=== PATIENT | female | born 1930 | race Caucasian/White ===

== ENCOUNTER 2018-04-25 00:31 | Observation (INO) ==
[2018-04-25] MEDS ORDERED: Aspirin 81 MG TAB.CHEW PO ONE (00:35)
[2018-04-25 01:38] LABS: Basophils % 0.3 %; Eosinophils # 0.1 K/mcL (0.0-0.6); Eosinophils % 1.3 %; Hematocrit 38.1 % (35.3-44.9); Hemoglobin 12.7 g/dL (11.5-15.4); Immature Granulocytes % 0.8 % (0-4); Lymphocytes # 1.5 K/mcL (0.6-4.6); Mean Corpuscular HGB Conc 33.3 g/dL (31.6-35.5); Mean Corpuscular Volume 89.9 fL (83.0-100.0); Mean Platelet Volume 10.4 fL (9.4-12.4); Monocytes # 0.7 K/mcL (0.0-1.3); Monocytes % 9.2 %; Neutrophils # 5.3 K/mcL (1.6-8.9); Platelet Count 255 K/mcL (140-400); Red Blood Count 4.24 M/mcL (3.82-4.97); Red Cell Distribution Width 12.3 % (11.5-14.5); Segmented Neutrophils % 69.4 %
--- NOTE | 2018-04-25 01:45 | Emergency Department Note ---
Disposition Clinical Impression: Chest pain Qualifiers: Chest pain type: unspecified Qualified Code(s): R07.9 - Chest pain, unspecified Disposition: Admitted As Inpatient Condition: Fair Referrals: Rm Sylvester Jr, MD [Primary Care Provider] - Forms: ED Satisfaction Letter Time of Disposition: 02:58 General Adult HPI - General Chief complaint: UC Shortness of Breath Stated complaint: Left Arm Pain Time Seen by Provider: 04/25/18 00:35 Source: EMS Mode of arrival: EMS Limitations: age Nursing Notes Reviewed: Yes Vital Signs Reviewed: Yes - History of Present Illness HPI Narrative: 88-year-old female history of hypertension presents with left-sided chest pressure shortness of breath pain radiating to her left arm. Patient does have a history of rheumatoid arthritis as well initially thought it was this FROM sleep made her more short of breath and she called EMS, they brought her in she is having 5 or 10 chest pain initially on arrival, and shortness of breath. Mostly pain in her left arm, the patient states that her arm is often recently injured, she is a recent history of DVTs or PEs. Pt Subjective Complaint: Left Arm pain SOB Onset (ago): hour(s) Pain Severity: mild Pain Scale: 0 Improves with: nothing Worsens with: nothing Associated symptoms: Reports: chest pain. Denies: confusion, cough, diaphoresis , headaches, loss of appetite, malaise Treatments Prior to Arrival: none - Related Data Home Medications Medication Instructions Recorded Confirmed Diltiazem 06/15/15 06/15/15 Metoprolol 06/15/15 06/15/15 Previous Rx's Medication Instructions Recorded methylPREDNISolone [Medrol] 4 mg PO TAPER #21 tablet 12/23/16 Allergies Allergy/AdvReac Type Severity Reaction Status Date / Time No Known Allergies Allergy Verified 06/15/15 16:27 All systems ED: reviewed and negative except as stated. Review of Systems: As Per HPI Constitutional: Denies: fever, chills Eyes: Denies: eye pain ENT ED: Denies: ear pain Cardiovascular: Reports: as per HPI, chest pain Respiratory: Reports: as per HPI, dyspnea. Denies: cough Gastrointestinal: Denies: abdominal pain Genitourinary: Denies: urgency, dysuria Musculoskeletal: Reports: as per HPI, arthralgia. Denies: back pain Integumentary: Denies: rash Past Medical History - Past Medical History Attestation: Yes The following information was validated with the patient. 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 ASSISTANT TEACHER history - Social History Smoking Status: Never smoker Smokeless Tobacco Status: No Alcohol use: Reports: none Drug use: Reports: none Physical Exam Constitutional: Elderly cachectic female appears mildly uncomfortable Eyes: PERRLA, sclera anicteric ENT & Mouth: MMM Neck: normal inspection, neck is supple Resp: CTA bilaterally, no resp distress CV: RRR, no m/g/r GI: normal inspection, soft, no guarding or rigidity Neuro: A&O3, CNII-XII grossly intact, MOORE MSK; pain with range of motion of the left arm at the elbow, Skin: on limited exam, skin intact with no rashes or lesions - General General appearance: alert Course Course Narrative: Patient's pain was resolved after aspirin administration, her EKG was within normal limits and her troponin was not elevated, but given her age and comorbidities with chest pain shortness of breath or heart score is a 4, will admit her for further workup and cardiac enzyme trending, the hospitalist's excepting [place] Vital Signs Temperature 97.8 F 04/25/18 01:31 Pulse Rate 70 04/25/18 01:31 Respiratory Rate 18 04/25/18 01:31 Blood Pressure 132/66 04/25/18 01:31 O2 Sat by Pulse Oximetry 98 04/25/18 01:31 Temperature 97.8 F 04/25/18 01:31 Pulse Rate 70 04/25/18 01:31 Respiratory Rate 18 04/25/18 01:31 Blood Pressure 132/66 04/25/18 01:31 O2 Sat by Pulse Oximetry 98 04/25/18 01:31 Oxygen Delivery Oxygen Delivery Room Air Medical Decision Making - Differential Diagnosis Chest pain, atypical, ACS, unstable angina, return arthritis, - Medical Records Medical records reviewed: Yes I reviewed the patient's medical records. - Lab Data Lab results reviewed: Yes I reviewed the patient's lab results. Result diagrams: 04/25/18 01:19 04/25/18 01:19 Lab Results 04/25/18 04/25/18 Range/Units 01:19 01:19 WBC 7.6 (4.3-11.1) K/mcL RBC 4.24 (3.82-4.97) M/mcL Hgb 12.7 (11.5-15.4) g/dL Hct 38.1 (35.3-44.9) % MCV 89.9 (83.0-100.0) fL MCH 30.0 (28.0-33.3) pg MCHC 33.3 (31.6-35.5) g/dL RDW 12.3 (11.5-14.5) % Plt Count 255 (140-400) K/mcL MPV 10.4 (9.4-12.4) fL Immature Gran % 0.8 (0-4) % Seg Neutrophils % 69.4 % Lymphocytes % 19.0 % Monocytes % 9.2 % Eosinophils % 1.3 % Basophils % 0.3 % Neutrophils # 5.3 (1.6-8.9) K/mcL Lymphocytes # 1.5 (0.6-4.6) K/mcL Monocytes # 0.7 (0.0-1.3) K/mcL Eosinophils # 0.1 (0.0-0.6) K/mcL Basophils # 0.0 (0.0-0.2) K/mcL Sodium 135 L (136-145) mEq/L Potassium 4.2 (3.5-5.1) mEq/L Chloride 101 (98-107) mEq/L Carbon Dioxide 22 L (23-29) mEq/L BUN 29 H (8-23) mg/dL Creatinine 0.92 (0.60-1.20) mg/dL Est GFR ( Amer) > 60 (> 60) Est GFR (Non-Af Amer) 58 L (> 60) BUN/Creatinine Ratio 32 H (6-26) Glucose 111 H (70-105) mg/dL Calculated Osmolality 287 (280-300) Calcium 9.7 (8.6-10.3) mg/dL Troponin I < 0.03 (< 0.04) ng/mL - Radiology Data Radiology results reviewed: Yes I reviewed the patient's radiology results. Chest X-Ray 04/25/18 00:35 IMPRESSION: No acute disease. D/ / Rahul Villalta MD / Rahul Villalta MD Interpreting Provider: Rahul Villalta MD - EKG Data EKG #1 EKG attestation: Yes I reviewed and interpreted this EKG. EKG shows normal: sinus rhythm Rate: normal Rhythm: NSR [place]/QRS: normal (84 bpm AR 111 QRS [address] segment elevations or depressions) Heart Score - Score History: Moderately Suspicious EKG: Normal Age: Greater than 65 Risk Factors: 1-2 risk factors Troponin: Less than normal limit HEART Score Total: 4
[2018-04-25 01:56] LABS: BUN/Creatinine Ratio 32 (6-26); Blood Urea Nitrogen 29 mg/dL (8-23); Calcium 9.7 mg/dL (8.6-10.3); Carbon Dioxide 22 mEq/L (23-29); Chloride 101 mEq/L (98-107); Glucose 111 mg/dL (70-105); Osmolality,Calculated 287 (280-300); Potassium 4.2 mEq/L (3.5-5.1); Sodium 135 mEq/L (136-145); eGFR For African Americans > 60 (> 60); eGFR For Non-African Americans 58 (> 60)
[2018-04-25 01:57] LABS: Troponin I < 0.03 ng/mL (< 0.04)
[2018-04-25] MEDS ORDERED: *HR* HYDROcodone/Acet 5/325 mg TABLET PO PRN (08:05)
[2018-04-25] MEDS ORDERED: Naloxone 0.4 MG/ML INJ IVP PRN (08:05)
[2018-04-25] MEDS ORDERED: Acetaminophen 325 MG TABLET PO PRN (08:05)
--- NOTE | 2018-04-25 08:13 | Internal Med History&Physical ---
Date of Encounter: 04/25/18 Time of Encounter: 07:57 Internal Medicine - H&P: HPI Chief complaint: "Left arm burning" Admitted From: Emergency Dept Plans for Post Hospital Care: Home History of present illness: Ms. Sofia is a 88 year old female who presented to ED this morning for left arm "burning." She states that she was sitting and watching TV when the pain started. Pain was located on ventral left lower arm, and later radiated up left arm to left shoulder. She denies any chest pain. She denies fever, chills , SOB, nausea, vomiting, abdominal pain, changes in bladder, or changes in bowels. She has a history of arthritis, for which she got steroid shots a few weeks ago. Only other relevant PMH is HTN, which has been well-controlled recently on diltiazem and metoprolol. In the ED, CXR showed no acute cardiopulmonary process. EKG was NSR with HR 84. Initial troponin was WNL. I was asked to admit patient for chest pain ruleout. Past Med Surg Social Fam HX - Past Medical History Attestation: Yes The following information was validated with the patient. Source: patient Medical history: arthritis, hypertension Psychiatric history: no psych history - Past Surgical History Surgical History: no surgical history - Social History Smoking Status: Never smoker Smokeless Tobacco Status: No Alcohol use: none Drug use: none - Additional Family History Additional family history: Family history of CAD, but cannot specify family members or age. Internal Medicine - H&P: Meds Diltiazem 06/15/15 [History] Metoprolol 06/15/15 [History] methylPREDNISolone [Medrol] 4 mg PO TAPER #21 tablet 12/23/16 [Rx] 3 Allergy/AdvReac Type Severity Reaction Status Date / Time No Known Allergies Allergy Verified 06/15/15 16:27 All Systems PM: A 10-system review of systems was performed and is negative for pertinent findings except as documented above in the HPI. - Constitutional Vitals: Temp Pulse Resp BP Pulse Ox 98.1 F 76 15 132/77 96 04/25/18 07:38 04/25/18 07:38 04/25/18 07:38 04/25/18 07:38 04/25/18 07:38 General appearance: Present: cooperative, A&O X 3, pleasant, no acute distress, answers questions appropriately - Head Head exam: Present: atraumatic, normal inspection, normocephalic - Eye Eye exam: Present: EOMI, PERRL. Absent: conjunctival injection, nystagmus, scleral icterus - ENT ENT exam: Present: mucous membranes moist, normal external ear exam, normal oropharynx - Neck Neck exam general surgery: Present: supple, trachea midline. Absent: lymphadenopathy, tenderness, thyromegaly - Respiratory Respiratory exam: Present: CTAB. Absent: accessory muscle use, rales, rhonchi, wheezes Additional comments: Normal WOB - Cardiovascular Cardiovascular exam: Present: RRR, +S1, +S2. Absent: diastolic murmur, gallop, rubs, systolic murmur Additional comments: No BLE edema - GI/Abdominal GI/Abdominal exam: Present: normal bowel sounds, soft. Absent: distended, hepatomegaly, mass, splenomegaly, tenderness - Extremities Exam Additional comments: No erythema, edema, or TTP of BUE and BLE. - Neurological Exam Neurological exam: Present: alert, CN II-XII intact, oriented X3, no focal deficits, strengths equal and symetr throughout. Absent: motor sensory deficit , facial droop, speech deficit - Psychiatric Psychiatric exam: Present: normal affect, normal mood. Absent: agitated, anxious, depressed - Skin Skin exam: Present: dry, intact, warm. Absent: cyanosis, rash Internal Med - H&P Results - Labs CBC & Chem 7: 04/25/18 01:19 18 01:19 - Assessment and plan (1) Chest pain Current Visit: Yes Status: Resolved Assessment and plan: No chest pain at this time. Admit for observation with telemetry for chest pain ruleout. Trend troponin x 3. Obtain ECHO. Management of HTN as per below. Very low suspicion for ACS. Tylenol and norco PRN pain. Supplemental O2 PRN. Aspirin given in ED. Qualifiers: Chest pain type: other chest pain Qualified Code(s): R07.89 - Other chest pain; R07.8 - Other chest pain (2) Left arm pain Current Visit: Yes Status: Acute Assessment and plan: Possibly related to arthritis. Pain control as per above. Rule out ACS as per above. (3) Hypertension Current Visit: Yes Status: Acute Assessment and plan: Normotensive at this time. Continue home medications after verification. Hydralazine IV PRN HTN. Qualifiers: Hypertension type: essential hypertension Qualified Code(s): I10 - Essential (primary) hypertension (4) Arthritis Current Visit: Yes Status: Acute Assessment and plan: Keep follow up as outpatient. Received steroid injections regularly. Pain control as per above. (5) DVT prophylaxis Current Visit: Yes Status: Acute Assessment and plan: Start lovenox 40 mg SQ QD and SCDs. - Time Spent With Patient Total time spent is greater than 50% in coordination of care (as documented) at patient's floor/unit and/or counseling patient: less than 15 minutes
[2018-04-25] MEDS: *HR* Enoxaparin 40 MG/0.4 ML SYRINGE SQ SCH (09:17)
[2018-04-25] MEDS ORDERED: Triamcinolone Acet 0.1% CRM 15 GM TUBE TP PRN (17:41)
[2018-04-25] MEDS: Spironolactone 25 MG TABLET PO SCH (18:30)
[2018-04-25] MEDS: Diltiazem CD (24hr) 180 MG CAPSULE PO SCH (18:30)
[2018-04-25] MEDS: Metoprolol XL (24 HR) Succ 50 MG TAB.ER.24H PO SCH (18:30)
[2018-04-26] MEDS: *HR* Enoxaparin 40 MG/0.4 ML SYRINGE SQ SCH (06:09)
[2018-04-26 06:25] LABS: Basophils % 0.4 %; Eosinophils # 0.1 K/mcL (0.0-0.6); Eosinophils % 0.7 %; Hematocrit 39.1 % (35.3-44.9); Hemoglobin 13.1 g/dL (11.5-15.4); Immature Granulocytes % 0.9 % (0-4); Lymphocytes % 13.7 %; Mean Corpuscular HGB Conc 33.5 g/dL (31.6-35.5); Mean Corpuscular Hemoglobin 30.4 pg (28.0-33.3); Mean Corpuscular Volume 90.7 fL (83.0-100.0); Mean Platelet Volume 10.8 fL (9.4-12.4); Monocytes # 0.9 K/mcL (0.0-1.3); Monocytes % 11.3 %; Neutrophils # 5.6 K/mcL (1.6-8.9); Platelet Count 254 K/mcL (140-400); Red Blood Count 4.31 M/mcL (3.82-4.97)
[2018-04-26 06:42] LABS: BUN/Creatinine Ratio 27 (6-26); Blood Urea Nitrogen 28 mg/dL (8-23); Calcium 9.5 mg/dL (8.6-10.3); Carbon Dioxide 20 mEq/L (23-29); Chloride 101 mEq/L (98-107); Chol/HDL Ratio 2.6 (0-4.9); Cholesterol 206 mg/dL (< 200); Glucose 115 mg/dL (70-105); HDL Cholesterol 79 mg/dL (40-59); LDL Cholesterol,Calculated 112 mg/dL (0-99); Osmolality,Calculated 286 (280-300); Potassium 4.1 mEq/L (3.5-5.1); Sodium 135 mEq/L (136-145); Triglycerides 76 mg/dL (< 150); eGFR For African Americans > 60 (> 60); eGFR For Non-African Americans 51 (> 60)
[2018-04-26] MEDS: Spironolactone 25 MG TABLET PO SCH ×2 (09:14→11:24)
[2018-04-26] MEDS: Metoprolol XL (24 HR) Succ 50 MG TAB.ER.24H PO SCH ×2 (09:14→11:24)
[2018-04-26] MEDS: Diltiazem CD (24hr) 180 MG CAPSULE PO SCH ×2 (09:14→11:24)
--- NOTE | 2018-04-26 09:22 | Internal Med Progress Note ---
Date of Encounter: 04/26/18 Time of Encounter: 09:20 - Assessment and plan (1) Acute delirium Current Visit: Yes Status: Acute Assessment and plan: Acute delirium beginning overnight No prior history of confusion or dementia Check for infective source, obtain UA to consider UTI Check a [id number] and TSH Seroquel 12.5 mg now then 25 mg by mouth at night Tried to avoid Haldol or Ativan as is may exacerbate confusion obtain MRI of head-patient also having truncal swaying when sitting up in bed unsupported. Rule out CVA/TIA (2) Chest pain Current Visit: Yes Status: Resolved Assessment and plan: Presented with left lower arm pain radiating up to the left shoulder Patient denies ever having any chest pain throughout the stay No prior cardiac history per medical record review She has been admitted for observation for chest pain ruleout Troponin found to be negative x3, no ECG changes concerning for ischemia per my review Given clinical findings she has a very low suspicion for ACS Continue Tylenol and [place] for pain Supplemental O2 when necessary TTE obtained- LVEF 60-65% Normal LV chamber size, wall thickness and function Normal LV diastolic dysfunction Normal RV structure and function Mild-moderate aortic regurgitation No evidence of pulmonary HTN Qualifiers: Chest pain type: other chest pain Qualified Code(s): R07.89 - Other chest pain; R07.8 - Other chest pain (3) Left arm pain Current Visit: Yes Status: Acute Assessment and plan: Possibly related to arthritis Pain control as per above (4) Hypertension Current Visit: Yes Status: Acute Assessment and plan: History of HTN BP remained stable Continue home anti-HTN medications Hydralazine IV PRN HTN. Qualifiers: Hypertension type: essential hypertension Qualified Code(s): I10 - Essential (primary) hypertension (5) Arthritis Current Visit: Yes Status: Acute Assessment and plan: History of bilateral shoulder arthritis Follows outpatient with bone and joint team Receives steroid injections regularly Into recurrent pain control regimen (6) DVT prophylaxis Current Visit: Yes Status: Acute Assessment and plan: Continue SQ Lovenox and SCDs, early ambulation as tolerated - Time Spent With Patient Total time spent is greater than 50% in coordination of care (as documented) at patient's floor/unit and/or counseling patient: Greater than 35 minutes - Subjective Interval history: Patient seen and examined at bedside today. Patient's son is at bedside with her. Patient seems very agitated this morning is refusing to answer questions or cooperate with examination. The patient's son is there and concern that this is a change in mental status. He reports that his mother is not normally this agitated. He does report however that the patient is alert to self and place and situation. That is also my assessment. - Constitutional Vitals: Temp Pulse Resp BP Pulse Ox 98.0 F 65 14 116/73 96 04/25/18 22:56 04/25/18 22:56 04/25/18 22:56 04/25/18 22:56 04/25/18 22:56 General appearance: Present: A&O X 3, no acute distress. Absent: cooperative, pleasant, answers questions appropriately Exam: Uncooperative, refusing to participate in examination - Head Head exam: Present: atraumatic, normocephalic - Eye Eye exam: Present: PERRL, conjuntiva pink, sclera anicteric Pupils: Present: PERRL - Neck Neck exam general surgery: Present: supple, trachea midline. Absent: lymphadenopathy - Respiratory Respiratory exam: Present: CTAB. Absent: accessory muscle use, rales, rhonchi, wheezes - Cardiovascular Cardiovascular exam: Present: RRR, +S1, +S2. Absent: diastolic murmur, gallop, rubs, systolic murmur - GI/Abdominal GI/Abdominal exam: Present: normal bowel sounds, soft, no peritoneal signs. Absent: distended, tenderness - Extremities Exam Extremities exam: Present: warm, radial pulses palpable and symmetrical. Absent : calf tenderness, cyanotic, pedal edema - Neurological Exam Neurological exam: Present: CN II-XII intact, oriented X3, no focal deficits. Absent: pronater drift, facial droop, speech deficit - Psychiatric Psychiatric exam: Present: agitated. Absent: normal affect, normal mood - Skin Skin exam: Present: dry, intact Internal Medicine: Result - Labs CBC & Chem 7: 04/26/18 05:21 04/26/18 05:21 Labs: Short CBC 04/26/18 Range/Units 05:21 WBC 7.6 (4.3-11.1) K/mcL Hgb 13.1 (11.5-15.4) g/dL Hct 39.1 (35.3-44.9) % Plt Count 254 (140-400) K/mcL Neutrophils # 5.6 (1.6-8.9) K/mcL BMP 04/26/18 05:21 Sodium 135 L Potassium 4.1 Chloride 101 Carbon Dioxide 20 L BUN 28 H Creatinine 1.02 Glucose 115 H Calcium 9.5 Cardiac Enzymes 04/25/18 04/25/18 Range/Units 13:52 19:41 Troponin I < 0.03 < 0.03 (< 0.04) ng/mL - Impressions Impressions Echocardiogram 04/25/18 07:44 Impressions: LVEF 60-65%. Normal LV chamber size, wall thickness and function. Mild left ventricular diastolic dysfunction. Normal right ventricular structure and function. Mild-moderate aortic regurgitation. No evidence of pulmonary hypertension. Left Ventricular Wall Motion: Rest Echo Findings All wall segments showed normal motion. Findings: Study Quality * Technically adequate exam. ECG Findings * Normal sinus rhythm. Left Ventricle * LVEF 60-65%. * Normal LV chamber size, wall thickness and function. * Mild left ventricular diastolic dysfunction. Right Ventricle * Normal right ventricular structure and function. Left Atrium * Mildly dilated left atrium. Right Atrium * Normal right atrial size. Aortic Valve * Aortic valve not well visualized. * Grossly, mildly calcified aortic valve leaflets. * Mild-moderate aortic regurgitation. Mitral Valve * Normal mitral valve structure and function. * No mitral regurgitation. * No mitral stenosis. Tricuspid Valve * Normal tricuspid valve structure and function. * Trace tricuspid regurgitation. * No evidence of pulmonary hypertension. Pulmonic Valve * Normal pulmonic valve structure and function. * Trace pulmonic regurgitation. Aorta * Normally sized aortic root. Pericardium * The pericardium appears normal. IVC * Normal IVC dimensions and inspiratory collapse. Pulmonary Artery * Normal visualized portions of the main pulmonary artery. Consult Discharge Plan - Plan Referrals: Rm Sylvester Jr, MD [Primary Care Provider] - 04/30/18 10:00 am (you will see Mari Montiel )
[2018-04-26] MEDS ORDERED: *HR* LORazepam 2 MG/ML VIAL IVP ONE ×2 (10:00→12:09)
--- NOTE | 2018-04-26 13:02 | Neurology - Consult Note ---
Date of Encounter: 04/26/18 Time of Encounter: 09:45 Assessment and Plan (1) Acute delirium Status: Acute elderly lady admitted with arm pain now with delerium, likely had MRI of brain, which I have reviewed did not show any acute abnormality suggest to check for any infection, like UTI check B 12 folate TSH and any other reversible causes like dehydration may give some fluids try Low dose SEROQUEL 12.5 mg now and 25 mg po at night avoid Haldol or Ativan as likely would make her more delerious At the same time with changes in an environment especially in the evening this chances that she may get more delirious discuss and explain to son History of Present Illness HPI: Ms. Sofia is a 88 year old female who presented to ED this morning for left arm "burning." She states that she was sitting and watching TV when the pain started. Pain was located on ventral left lower arm, and later radiated up left arm to left shoulder. at the time of admission She denies any chest pain. She denies fever, chills, SOB, nausea, vomiting, abdominal pain, changes in bladder, or changes in bowels. She has a history of arthritis, for which she got steroid shots a few weeks ago. she also has PMH of HTN, While in the hospital she became confused and noted to be agitated at times some neurology service is been consulted Past Med Surg Social Fam HX - Past Medical History Medical history: arthritis, hypertension Psychiatric history: no psych history - Past Surgical History Surgical History: no surgical history - Social History Smoking Status: Never smoker Smokeless Tobacco Status: No Alcohol use: none Drug use: none Medications and Allergies Acetaminophen [Extra Strength Non-Aspirin] 500 mg PO DAILY PRN 04/25/18 [History ] Diltiazem HCl [Diltiazem 24Hr Cd] 360 mg PO DAILY 04/25/18 [History] Metoprolol Succinate [Toprol Xl] 50 mg PO DAILY 04/25/18 [History] Spironolactone [Aldactone] 25 mg PO DAILY 04/25/18 [History] Tolterodine Tartrate [Detrol] 2 mg PO BID 04/25/18 [History] Triamcinolone Acet 0.1% CRM [Kenalog] 1 appl TP BID PRN 04/25/18 [History] Quetiapine Fumarate [SEROquel] 25 mg PO HS 30 Days #30 tablet 04/28/18 [Rx] 3 Allergy/AdvReac Type Severity Reaction Status Date / Time No Known Allergies Allergy Verified 06/15/15 16:27 All Systems: The remainder of the systems were reviewed and are negative Physical Examination - Vital Signs Vital Signs: Initial Vital Signs Temp Pulse Resp BP Pulse Ox 97.8 F 70 18 132/66 98 04/25/18 01:31 04/25/18 01:31 04/25/18 01:04/25/18 01:04/25/18 01:31 - Exam Exam: GENERAL: Comfortable in no acute distress HEENT: Normal LUNGS: CTA HEART: RRR, S1 S2 Audible, no murmur EXTREMITIES: No Pedal edema. DETAILED NEUROLOGICAL EXAMINATION: MENTAL STATUS: Oriented to person, , only she at times follow commands other times she does not follow any commands she is awake and alert agitated at times confused. Not able to do any formal Mini-Mental status Cranial Nerve Examination: CN - II: Visual Acuity, Field of Vision Normal, Fundus examination: No disk edema, Pupils- size shape reaction to light and accommodation: All normal. CN III, IV, : External ocular movements were intact, Pupils were reactive, Nodrooping of the eyelids CN V: Sensation over the face to light touch and pinprick all normal. Corneal reflexes not tested, jaw jerk normal. CN VII: No facial asymmetry, no flattening of nasolabial folds, no difficulty in closing the eyes, no loss of forehead wrinkles, no difficulty in eye-closure, frowning raising eyebrows. CNVIII: No significant hearing loss CN IX, X: Uvula centralized not deviated, Gag reflex: Not tested CN X1: Sternocleidomastoid, trapezius, normal or evidence of any weakness. CN X11: No Dysarthria, no wasting or fibrilation f tongue muscles, no deviation, tongue muscle strength normal. Motor examination: No hypertrophy, tone was normal, power grade 0-5 Upper limbs Proximal- No difficulty in lifting the arms above the head. Distal- No weakness in distal muscles On formal testing 4/4 all over Lower limbs On formal testing 4/ 4 all over Coordination: [id number] normal. Target pursuit normal finger tapping normal, Rapid alternating moment of wrist normal Sensory system: Superficial sensations- Touch normal. Pain- Pinprick, Temperature all normal, Deep sensation normal, Joint position sense normal. Cortical sensation, Tactile discrimination, localization and extinction all normal. Deep tendon reflexes. Symmetrical bilateral, No evidence of Babinski. No sign of meningeal irritation Gait Examination: Deferred Results - Laboratory Findings CBC and BMP: 04/28/18 07:15 04/28/18 07:15 Abnormal lab findings: Abnormal lab results Sodium 135 mEq/L (136-145) L 04/26/18 05:21 Carbon Dioxide 20 mEq/L (23-29) L 04/26/18 05:21 BUN 28 mg/dL (8-23) H 04/26/18 05:21 Est GFR (Non-Af Amer) 51 (> 60) L 04/26/18 05:21 BUN/Creatinine Ratio 27 (6-26) H 04/26/18 05:21 Glucose 115 mg/dL (70-105) H 04/26/18 05:21 Cholesterol 206 mg/dL (< 200) H 04/26/18 05:21 LDL Cholesterol, Calc 112 mg/dL (0-99) H 04/26/18 05:21 HDL Cholesterol 79 mg/dL (40-59) H 04/26/18 05:21 - Diagnostic Findings Additional findings: Patient just had MRI of the brain which I have reviewed did not show any acute abnormality has significant white matter changes Consult Discharge Plan - Plan Referrals: Rm Sylvester Jr, MD [Primary Care Provider] - 04/30/18 10:00 am (you will see Mari Montiel ) Prescriptions: Quetiapine Fumarate [SEROquel] 25 mg PO HS 30 Days #30 tablet
[2018-04-26 15:23] LABS: Folate 12.5 ng/mL (3.0-16.0)
[2018-04-26] MEDS ORDERED: cefTRIAXone 1,000 MG in Water for inj. (sterile) 20 ML 10 ML IVP SCH (16:00)
[2018-04-26 16:07] LABS: Bilirubin,Urine Negative (Negative); Blood,Urine Negative (Negative); Clarity,Urine Clear (Clear); Color,Urine Yellow (Yellow); Glucose,Urine (UA) Normal (Normal); Ketones,Urine Negative (Negative); Leukocyte Esterase,Urine Negative (Negative); Nitrite,Urine Negative (Negative); PH,Urine 6.5 pH Units (5.0-8.0); Protein,Urine Negative (Neg-Trace); Specific Gravity,Urine 1.012 (1.010-1.025); Urobilinogen,Urine Normal (Normal)
[2018-04-26 16:17] LABS: Amphetamine Screen,Urine Negative ng/mL (Cutoff=1000); Barbiturate Screen,Urine Negative ng/mL (Cutoff=200); Benzodiazepines Screen,Urine Negative ng/mL (Cutoff=200); Cannabinoid Screen,Urine Negative ng/mL (Cutoff = 50); Cocaine Screen,Urine Negative ng/mL (Cutoff= 300); Opiate Screen,Urine Negative ng/mL (Cutoff=300)
[2018-04-26] MEDS ORDERED: *HR* LORazepam 2 MG/ML VIAL IVP PRN (16:50)
[2018-04-27] MEDS ORDERED: *HR* LORazepam 2 MG/ML VIAL IVP ONE (05:34)
[2018-04-27] MEDS ORDERED: *HR* Enoxaparin 30 MG/0.3 ML SYRINGE SQ SCH (06:00)
[2018-04-27 09:26] LABS: Basophils % 0.2 %; Eosinophils % 0.4 %; Hematocrit 37.5 % (35.3-44.9); Hemoglobin 12.4 g/dL (11.5-15.4); Immature Granulocytes % 0.5 % (0-4); Lymphocytes # 1.2 K/mcL (0.6-4.6); Lymphocytes % 12.9 %; Mean Corpuscular HGB Conc 33.1 g/dL (31.6-35.5); Mean Corpuscular Hemoglobin 30.2 pg (28.0-33.3); Mean Corpuscular Volume 91.2 fL (83.0-100.0); Mean Platelet Volume 10.4 fL (9.4-12.4); Monocytes # 1.1 K/mcL (0.0-1.3); Monocytes % 11.3 %; Platelet Count 216 K/mcL (140-400); Red Blood Count 4.11 M/mcL (3.82-4.97); Red Cell Distribution Width 12.2 % (11.5-14.5); Segmented Neutrophils % 74.7 %
[2018-04-27] MEDS: Spironolactone 25 MG TABLET PO SCH (09:39)
[2018-04-27] MEDS: Diltiazem CD (24hr) 180 MG CAPSULE PO SCH (09:39)
[2018-04-27] MEDS: Metoprolol XL (24 HR) Succ 50 MG TAB.ER.24H PO SCH (09:39)
[2018-04-27 09:46] LABS: BUN/Creatinine Ratio 40 (6-26); Blood Urea Nitrogen 28 mg/dL (8-23); Calcium 9.4 mg/dL (8.6-10.3); Carbon Dioxide 25 mEq/L (23-29); Chloride 103 mEq/L (98-107); Glucose 86 mg/dL (70-105); Osmolality,Calculated 285 (280-300); Potassium 4.3 mEq/L (3.5-5.1); Sodium 135 mEq/L (136-145); eGFR For African Americans > 60 (> 60); eGFR For Non-African Americans > 60 (> 60)
--- NOTE | 2018-04-27 11:16 | Internal Med Progress Note ---
Date of Encounter: 04/27/18 Time of Encounter: 11:14 - Assessment and plan (1) Acute delirium Current Visit: Yes Status: Acute Assessment and plan: Acute delirium beginning early yesterday morning No prior history of confusion or dementia No infective source to consider as dementia cause B12, folate and TSH unremarkable Review of medications does not reveal any medication likely causing delirium; most likely hospital-acquired Last night the patient was combative and agitated requiring soft restraints; these have been discontinued Additionally, the patient fell yesterday evening hitting her head. CT of head has/P follow-up negative for acute intracranial abnormality. Not on any blood thinners Avoid further use of soft wrist restraints unless absolutely necessary Try to avoid Haldol or Ativan as is may exacerbate confusion Continue 25 mg Seroquel at night MRI of head obtained-negative for acute intracranial abnormalities or evidence of acute ischemia Consider discharging this afternoon or early tomorrow depending on patient's response to Seroquel. Currently, patient is drowsy due to Ativan and Seroquel use. 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 Patient denies ever having any chest pain throughout the stay No prior cardiac history per medical record review She has been admitted for observation for chest pain ruleout Troponin found to be negative x3, no ECG changes concerning for ischemia per my review Given clinical findings she has a very low suspicion for ACS Continue Tylenol and [place] for pain Supplemental O2 when necessary ACS ruled out TTE obtained- LVEF 60-65% Normal LV chamber size, wall thickness and function Normal LV diastolic dysfunction Normal RV structure and function Mild-moderate aortic regurgitation No evidence of pulmonary HTN Qualifiers: Chest pain type: other chest pain Qualified Code(s): R07.89 - Other chest pain; R07.8 - Other chest pain (3) Left arm pain Current Visit: Yes Status: Acute Assessment and plan: Chronic, see above (4) Hypertension Current Visit: Yes Status: Acute Assessment and plan: History of HTN BP remained stable thus far throughout stay, 04/27/18 Continue home anti-HTN medications Hydralazine IV PRN HTN. Qualifiers: Hypertension type: essential hypertension Qualified Code(s): I10 - Essential (primary) hypertension (5) Arthritis Current Visit: Yes Status: Acute Assessment and plan: History of bilateral shoulder arthritis Follows outpatient with bone and joint team Receives steroid injections regularly Continue current pain control regimen (6) DVT prophylaxis Current Visit: Yes Status: Acute Assessment and plan: Continue SQ Lovenox and SCDs Low risk, early ambulation - Time Spent With Patient Total time spent is greater than 50% in coordination of care (as documented) at patient's floor/unit and/or counseling patient: 25 - 35 minutes - Subjective Interval history: Patient seen and examined at bedside today. Patient is relatively this morning after receiving Ativan and Seroquel. Unable to purchase pain exam. Son at bedside reporting that his mother still appears slightly confused. Discussed plan of care with son. Verbalized understanding, no further questions - Constitutional Vitals: Temp Pulse Resp BP Pulse Ox 97.6 F 84 20 148/71 98 04/26/18 16:52 04/27/18 06:07 04/27/18 06:07 04/27/18 06:07 04/26/18 23:19 General appearance: Present: A&O X 1. Absent: cooperative, pleasant, answers questions appropriately Exam: Drowsy - Head Head exam: Present: atraumatic, normocephalic - Eye Eye exam: Present: PERRL, conjuntiva pink, sclera anicteric Pupils: Present: PERRL - Neck Neck exam general surgery: Present: supple, trachea midline. Absent: lymphadenopathy - Respiratory Respiratory exam: Present: CTAB. Absent: accessory muscle use, rales, respiratory distress, rhonchi, wheezes, tachypnea - Cardiovascular Cardiovascular exam: Present: RRR, +S1, +S2. Absent: diastolic murmur, gallop, rubs, systolic murmur - GI/Abdominal GI/Abdominal exam: Present: normal bowel sounds, soft, no peritoneal signs. Absent: distended, tenderness - Extremities Exam Extremities exam: Present: warm, radial pulses palpable and symmetrical. Absent : calf tenderness, cyanotic, pedal edema - Neurological Exam Neurological exam: Present: CN II-XII intact, oriented X3, no focal deficits. Absent: pronater drift, facial droop, speech deficit - Psychiatric Psychiatric exam: Absent: agitated, anxious - Skin Skin exam: Present: dry, intact Internal Medicine: Result - Labs CBC & Chem 7: 04/27/18 09:05 04/27/18 09:05 Labs: Short CBC 04/27/18 Range/Units 09:05 WBC 9.3 (4.3-11.1) K/mcL Hgb 12.4 (11.5-15.4) g/dL Hct 37.5 (35.3-44.9) % Plt Count 216 (140-400) K/mcL Neutrophils # 7.0 (1.6-8.9) K/mcL BMP 04/27/18 09:05 Sodium 135 L Potassium 4.3 Chloride 103 Carbon Dioxide 25 BUN 28 H Creatinine 0.70 Glucose 86 Calcium 9.4 Urine 04/26/18 Range/Units 15:45 Urine Color Yellow (Yellow) Urine Clarity Clear (Clear) Urine pH 6.5 (5.0-8.0) pH Units Ur Specific [place] 1.012 (1.010-1.025) Urine Protein Negative (Neg-Trace) mg/dL Urine Glucose (UA) Normal (Normal) mg/dL - Impressions Impressions Brain MRI 04/26/18 12:09 IMPRESSION: Limited exam secondary to patient motion artifact. Severe chronic small vessel ischemic disease within the periventricular white matter. Mild atrophy. No evidence of acute ischemia. D/ / 04/26/2018 14:24:35 Rivera Jordan MD / jose Interpreting Provider: Rivera Jordan MD Head CT 04/26/18 15:39 IMPRESSION: No acute intracranial abnormality. Diffuse atrophic changes with findings suggesting chronic microvascular ischemia D/ / Jeremias South MD / Jeremias South MD Interpreting Provider: Jeremias South MD Consult Discharge Plan - Plan Referrals: Rm Sylvester Jr, MD [Primary Care Provider] - 04/30/18 10:00 am (you will see Mari Montiel )
[2018-04-27 22:16] LABS: Amphetamine Screen,Urine Negative ng/mL (Cutoff=1000); Barbiturate Screen,Urine Negative ng/mL (Cutoff=200); Benzodiazepines Screen,Urine Negative ng/mL (Cutoff=200); Cannabinoid Screen,Urine Negative ng/mL (Cutoff = 50); Cocaine Screen,Urine Negative ng/mL (Cutoff= 300); Opiate Screen,Urine Negative ng/mL (Cutoff=300)
[2018-04-28] MEDS ORDERED: *HR* Enoxaparin 40 MG/0.4 ML SYRINGE SQ SCH (06:00)
--- NOTE | 2018-04-28 06:45 | Electrocardiograph Report ---
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
[2018-04-28 07:30] LABS: Basophils % 0.1 %; Eosinophils # 0.1 K/mcL (0.0-0.6); Eosinophils % 0.9 %; Hematocrit 39.2 % (35.3-44.9); Hemoglobin 12.8 g/dL (11.5-15.4); Immature Granulocytes % 0.5 % (0-4); Lymphocytes # 1.8 K/mcL (0.6-4.6); Lymphocytes % 18.5 %; Mean Corpuscular HGB Conc 32.7 g/dL (31.6-35.5); Mean Corpuscular Hemoglobin 29.8 pg (28.0-33.3); Mean Corpuscular Volume 91.4 fL (83.0-100.0); Mean Platelet Volume 10.4 fL (9.4-12.4); Monocytes # 0.8 K/mcL (0.0-1.3); Monocytes % 8.5 %; Neutrophils # 6.8 K/mcL (1.6-8.9); Platelet Count 222 K/mcL (140-400); Red Blood Count 4.29 M/mcL (3.82-4.97); Red Cell Distribution Width 12.3 % (11.5-14.5); Segmented Neutrophils % 71.5 %
[2018-04-28 07:51] LABS: BUN/Creatinine Ratio 30 (6-26); Blood Urea Nitrogen 25 mg/dL (8-23); Calcium 9.4 mg/dL (8.6-10.3); Carbon Dioxide 25 mEq/L (23-29); Chloride 102 mEq/L (98-107); Glucose 94 mg/dL (70-105); Osmolality,Calculated 282 (280-300); Potassium 4.2 mEq/L (3.5-5.1); Sodium 134 mEq/L (136-145); eGFR For African Americans > 60 (> 60); eGFR For Non-African Americans > 60 (> 60)
--- NOTE | 2018-04-28 09:26 | Electrocardiograph Report ---
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
[2018-04-28] MEDS: Diltiazem CD (24hr) 180 MG CAPSULE PO SCH (09:49)
[2018-04-28] MEDS: Spironolactone 25 MG TABLET PO SCH (09:49)
[2018-04-28] MEDS: Metoprolol XL (24 HR) Succ 50 MG TAB.ER.24H PO SCH (09:50)
--- NOTE | 2018-04-28 10:43 | Discharge Summary ---
- NOTES TO OUTPATIENT PROVIDER Notes to Outpatient Provider: Uncomplicated hospital course. Had a delirious episode while inpatient, returned to baseline prior to discharge. No diagnostic studies or labs pending on d/c Orders not resulted at time of discharge: Pending orders 04/27/18 09:05 Treponema Pallidum Ab Stat 04/29/18 04:00 Basic Metabolic Panel AM 0400 Complete Blood Count [HEME] AM 0400 Date of Encounter: 04/28/18 Time of Encounter: 10:41 - Discharge Diagnosis (1) Acute delirium Priority: Primary Status: Acute Assessment and Plan: Resolved Developed acute delirium during stay Appears to be hospital delirium, however she also has a poor sleep cycle and which could also explain this No prior history of confusion or dementia No infective source to consider as dementia cause B12, folate and TSH unremarkable Review of medications does not reveal any medication likely causing delirium; most likely hospital-acquired Had fall event during stay 2/2 delirium; head CT unremarkable for acute intracranial abnormality MRI of head obtained-negative for acute intracranial abnormalities or evidence of acute ischemia Plan is to discharge home with son for 24 assistance PT/OT to see as the patient is now agreeable for home health assistance if she qualifies SS consulted to help set up home health if qualifies Instructed to take melatonin 3mg at night to help with sleep Instructed to f/u with PCP w/in 1-week of D/C, also , instructed to return to the ED should delirium or shoulder pain return. They verbalized understanding. Denies any further questions. 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 Patient denies ever having any chest pain throughout the stay No prior cardiac history per medical record review She was admitted for observation for chest pain ruleout Troponin found to be negative x3, no ECG changes concerning for ischemia per my review Given clinical findings she has a very low suspicion for ACS TTE obtained- LVEF 60-65% Normal LV chamber size, wall thickness and function Normal LV diastolic dysfunction Normal RV structure and function Mild-moderate aortic regurgitation No evidence of pulmonary HTN Qualifiers: Chest pain type: other chest pain Qualified Code(s): R07.89 - Other chest pain; R07.8 - Other chest pain (3) Left arm pain Priority: Secondary Status: Acute Assessment and Plan: Chronic, see above (4) Hypertension Priority: Secondary Status: Acute Assessment and Plan: History of HTN BP remained stable thus far throughout stay, 04/28/18 Continue home anti-HTN medications at d/c Qualifiers: Hypertension type: essential hypertension Qualified Code(s): I10 - Essential (primary) hypertension (5) Arthritis Priority: Secondary Status: Acute Assessment and Plan: History of bilateral shoulder arthritis Follows outpatient with bone and joint team Receives steroid injections regularly Continue home pain control regimen at D/C Hospital course: Ms. Sofia is a 88 year old female Please see assessment and plan for hospital course Discharge discussed with: patient, family, nurse - Time Spent with Patient Total time spent providing and/or coordinating discharge services: Less than 30 minutes - Discharge Medications Prescriptions: Quetiapine Fumarate [SEROquel] 25 mg PO HS 30 Days #30 tablet Home Medications: Acetaminophen [Extra Strength Non-Aspirin] 500 mg PO DAILY PRN 04/25/18 [History ] Diltiazem HCl [Diltiazem 24Hr Cd] 360 mg PO DAILY 04/25/18 [History] Metoprolol Succinate [Toprol Xl] 50 mg PO DAILY 04/25/18 [History] Spironolactone [Aldactone] 25 mg PO DAILY 04/25/18 [History] Tolterodine Tartrate [Detrol] 2 mg PO BID 04/25/18 [History] Triamcinolone Acet 0.1% CRM [Kenalog] 1 appl TP BID PRN 04/25/18 [History] Quetiapine Fumarate [SEROquel] 25 mg PO HS 30 Days #30 tablet 04/28/18 [Rx] Allergies/Adverse Reactions: 3 Allergy/AdvReac Type Severity Reaction Status Date / Time No Known Allergies Allergy Verified 06/15/15 16:27 Date of admission: 04/25/18 02:55 Primary care physician: Rm Sylvester Jr, MD Consults: 04/25/18 07:45 Consult for Pharmacy Education [CONS] Stat Reason for Consult: Please verify home medications. Thanks. Call Completed: No 04/28/18 09:53 Consult to Tea Taster [CONS] Routine Reason for SW Consult: Home health, d/c today 04/28/18 10:05 Consult to Occupational Therapy [CONS] Routine Comment: Evaluate, develop and implement POC Reason for Consult: weakness, fall Does patient have active BEDREST order?: No Is patient medically & hemodynamically stable?: Yes Patient assessed for mobility or mobilized this visit?: No Consult to Physical Therapy [CONS] Routine Comment: Evaluate, develop and implement POC Reason for Consult: weakness, fall Does patient have active BEDREST order?: No Is patient medically & hemodynamically stable?: Yes Patient assessed for mobility or mobilized this visit?: No Discharging clinician: Dewayne Jackson Anticipated date of discharge: 04/28/18 - Constitutional Vitals: Temp Pulse Resp BP Pulse Ox 98.2 F 73 19 117/61 97 04/28/18 10:00 04/28/18 10:00 04/28/18 10:00 04/28/18 10:00 04/28/18 10:00 General appearance: Present: A&O X 3, pleasant, no acute distress. Absent: cooperative, answers questions appropriately - Head Head exam: Present: atraumatic, normocephalic - Eye Eye exam: Present: EOMI, PERRL, conjuntiva pink, sclera anicteric Pupils: Present: PERRL - Neck Neck exam general surgery: Present: supple, trachea midline. Absent: lymphadenopathy - Respiratory Respiratory exam: Present: CTAB. Absent: accessory muscle use, rales, rhonchi, wheezes - Cardiovascular Cardiovascular exam: Present: RRR, +S1, +S2. Absent: diastolic murmur, gallop, rubs, systolic murmur - GI/Abdominal GI/Abdominal exam: Present: normal bowel sounds, soft, no peritoneal signs. Absent: distended, tenderness - Extremities Exam Extremities exam: Present: warm, radial pulses palpable and symmetrical. Absent : calf tenderness, cyanotic, pedal edema - Neurological Exam Neurological exam: Present: CN II-XII intact, oriented X3, no focal deficits. Absent: pronater drift, facial droop, speech deficit - Skin Skin exam: Present: dry, intact - Patient Status Disposition: Home, Self-Care Condition: Fair Overall status at discharge: patient is progressing back to baseline - Discharge Instructions Follow Up With: Rm Sylvester Jr, MD [Primary Care Provider] - 04/30/18 10:00 am (you will see Mari Montiel ) - Diet and Activity Activity: increase activity as tolerated, resume usual activities as tolerated Diet: advance to your usual diet
[2018-04-28 14:04] VITALS: BP 112/64
--- NOTE | 2018-04-28 14:38 | Physician Discharge Referral ---
Home Health/Hosp Referral Info Transfer to: Home Health Provider in Charge Post Discharge: PCP - Diagnosis (1) Acute delirium Priority: Primary Status: Acute (2) Chest pain Priority: Secondary Status: Ruled-out (3) Left arm pain Priority: Secondary Status: Acute (4) Hypertension Priority: Secondary Status: Acute (5) Arthritis Priority: Secondary Status: Acute - Respiratory Orders Smoking Cessation: Smoking cessation has been advised. For more information, call the [place] Tobacco Quit Line at 9-213-XZRB-NOW. - Diet/Nutrition Diet/Nutrition Orders: Regular - Activity Activity Orders: Up ad luis e, Ambulate - Services Needed Following services are medically necessary services: Nursing - Transfer Medications Prescriptions: Quetiapine Fumarate [SEROquel] 25 mg PO HS 30 Days #30 tablet Home Medications: Acetaminophen [Extra Strength Non-Aspirin] 500 mg PO DAILY PRN 04/25/18 [History ] Diltiazem HCl [Diltiazem 24Hr Cd] 360 mg PO DAILY 04/25/18 [History] Metoprolol Succinate [Toprol Xl] 50 mg PO DAILY 04/25/18 [History] Spironolactone [Aldactone] 25 mg PO DAILY 04/25/18 [History] Tolterodine Tartrate [Detrol] 2 mg PO BID 04/25/18 [History] Triamcinolone Acet 0.1% CRM [Kenalog] 1 appl TP BID PRN 04/25/18 [History] Quetiapine Fumarate [SEROquel] 25 mg PO HS 30 Days #30 tablet 04/28/18 [Rx] Allergies/Adverse Reactions: 3 Allergy/AdvReac Type Severity Reaction Status Date / Time No Known Allergies Allergy Verified 06/15/15 16:27 Certification: Further, I certify that my clinical findings support that this patient is homebound (i.e. absences from home require considerable and taxing effort and are for medical reasons or faith services or infrequently or short duration when for other reasons) because: Homebound Reason: Patient requires assistance of a person or device to safely leave home Attestation: My signature below is to certify that this patient is under my care and that I, or nurse practitioner, or a physician's clinical physician assistant working with me, has a face-to -face encounter with this patient.
[2018-05-01 15:17] LABS: Phencyclidine Screen,Urine Negative ng/mL (Cutoff=25)
[2018-05-01 15:28] LABS: Phencyclidine Screen,Urine Negative ng/mL (Cutoff=25)
== END 2018-04-28 16:17 | disposition home or self-care (01) ==
LOC: EMEROO 00:31 → 3BNU 00:31
PROVIDERS: ADMIT Family Medicine; ATTEND Internal Medicine